=== PATIENT | male | born 1940 | race Caucasian/White ===

== ENCOUNTER 2024-06-20 17:49 | Observation (INO) | payer MEDICARE ==
[~2024-06-20] VITALS: Ht 177.8 cm; Wt 118.8 kg
[2024-06-20] MEDS ORDERED: cefTRIAXone SODIUM 2 GM in SODIUM CHLORIDE 0.9% 100 ML IV ONE ×2 (18:00→21:25)
[2024-06-20] MEDS ORDERED: SODIUM CHLORIDE 0.9% 1,000 ML IV ONE ×3 (18:00→23:05)
[2024-06-20] MEDS ORDERED: DILTIAZEM HCL 25 MG/5 ML SDV IV ONE (18:35)
[2024-06-20] MEDS ORDERED: SODIUM CHLORIDE 0.9% 500 ML IV ONE (18:35)
[2024-06-20] MEDS ORDERED: DILTIAZEM HCL 125 MG in SODIUM CHLORIDE 0.9% 100 ML IV ONE (18:35)
[2024-06-20 18:39] LABS: URINE BILIRUBIN - DIPSTICK Negative (NEGATIVE); URINE BLOOD DIPSTICK Negative (NEGATIVE); URINE COLOR Yellow; URINE GLUCOSE - DIPSTICK Negative (NEGATIVE); URINE KETONE Negative (NEGATIVE); URINE LEUK ESTERASE Negative (NEGATIVE); URINE NITRITE - DIPSTICK Negative (Negative); URINE PROTEIN - DIPSTICK Negative (NEG-TRACE); URINE SPECIFIC GRAVITY 1.015; URINE UROBILINOGEN - DIPSTICK 0.2 E.U./dL (0.2)
[2024-06-20] MEDS ORDERED: METOPROLOL TARTRATE 5 MG/5 ML VIAL IV ONE (19:15)
[2024-06-20 19:36] LABS: BASO% 0.2 % (0-3); HEMATOCRIT 41.8 % (39.0-50.0); HEMOGLOBIN 13.6 g/dl (14.0-18.0); IMMATURE GRANULOCYTES 0.4 % (0.0-5.0); LYMPH% 0.9 % (15-41); MEAN CELL VOLUME 95.2 fL CALC (80.0-100.0); MEAN CORPUSCULAR HGB CONC 32.5 g/dL CAL (32.0-36.0); MONO% 2.2 % (2-13); NEUT# 15.57 thou/uL (1.82-7.42); NEUT% 96.3 % (42-76); RED BLOOD COUNT 4.39 mill/uL (4.70-6.10)
[2024-06-20 19:51] LABS: ALBUMIN 3.6 g/dL (3.2-5.0); BILIRUBIN, TOTAL 0.7 mg/dL (0.2-1.3); POTASSIUM 3.7 mmol/l (3.5-5.1); TOTAL PROTEIN 6.1 g/dL (6.3-8.2)
[2024-06-20] MEDS ORDERED: ACETAMINOPHEN 500 MG TAB PO ONE (20:20)
[2024-06-20] MEDS ORDERED: KETOROLAC TROMETHAMINE 30 MG/ML SDV IV ONE (20:20)
[2024-06-20] MEDS ORDERED: AZITHROMYCIN 500 MG in SODIUM CHLORIDE 0.9% 250 ML IV ONE (21:25)
[2024-06-20] MEDS ORDERED: ACETAMINOPHEN 325 MG/TAB PO PRN (21:45)
[2024-06-20] MEDS ORDERED: SODIUM CHLORIDE 0.9% 1,000 ML IV PRN (21:45)
[2024-06-20] MEDS ORDERED: VANCOMYCIN HCL 1 GM in SODIUM CHLORIDE 0.9% 250 ML IV ONE (21:45)
[2024-06-20] MEDS ORDERED: MAGNESIUM HYDROXIDE 30 ML UDC PO PRN (21:45)
[2024-06-21] VITALS (10 sets, daily range): BP systolic 90–115; BP diastolic 44–56
[2024-06-21 05:10] LABS: BASO% 0.2 % (0-3); HEMATOCRIT 36.6 % (39.0-50.0); HEMOGLOBIN 11.8 g/dl (14.0-18.0); IMMATURE GRANULOCYTES 0.9 % (0.0-5.0); LYMPH% 4.1 % (15-41); MEAN CELL VOLUME 97.1 fL CALC (80.0-100.0); MEAN CORPUSCULAR HGB 31.3 pG CALC (26.0-32.0); MEAN CORPUSCULAR HGB CONC 32.2 g/dL CAL (32.0-36.0); MONO% 6.1 % (2-13); NEUT# 18.58 thou/uL (1.82-7.42); NEUT% 88.7 % (42-76); RED BLOOD COUNT 3.77 mill/uL (4.70-6.10); RED CELL DISTRI WIDTH 13.4 % (11.5-15.5)
[2024-06-21 05:46] LABS: BILIRUBIN, TOTAL 0.9 mg/dL (0.2-1.3); CHOLESTEROL HDL RATIO 2.3 (<4.4 (CALC)); CREATININE 1.1 mg/dL (0.7-1.3); MAGNESIUM 1.7 mg/dL (1.6-2.3); POTASSIUM 3.9 mmol/l (3.5-5.1)
[2024-06-21 05:47] LABS: ALBUMIN 2.8 g/dL (3.2-5.0)
[2024-06-21] MEDS ORDERED: TAMSULOSIN HCL 0.4 MG CAP PO SCH (08:00)
[2024-06-21] MEDS ORDERED: VANCOMYCIN HCL 1 GM in SODIUM CHLORIDE 0.9% 250 ML IV SCH ×2 (09:00→11:00)
[2024-06-21] MEDS ORDERED: METOPROLOL TARTRATE 25 MG/TAB PO SCH (09:00)
[2024-06-21] MEDS ORDERED: ASPIRIN 325 MG/TAB PO SCH (09:00)
[2024-06-21] MEDS ORDERED: cefTRIAXone SODIUM 2 GM in SODIUM CHLORIDE 0.9% 100 ML IV SCH (18:00)
[2024-06-21] MEDS ORDERED: ENOXAPARIN SODIUM 40 MG/0.4 ML SYR SC SCH (21:00)
[2024-06-21] MEDS ORDERED: ATORVASTATIN CALCIUM 10 MG/TAB PO SCH (21:00)
[2024-06-22 05:27] LABS: BASO% 0.3 % (0-3); EOS% 0.7 % (0-8); HEMATOCRIT 35.8 % (39.0-50.0); IMMATURE GRANULOCYTES 0.1 % (0.0-5.0); LYMPH% 7.1 % (15-41); MEAN CORPUSCULAR HGB 32.5 pG CALC (26.0-32.0); MEAN CORPUSCULAR HGB CONC 33.5 g/dL CAL (32.0-36.0); MONO% 9.3 % (2-13); NEUT# 7.9 thou/uL (1.82-7.42); NEUT% 82.5 % (42-76); RED BLOOD COUNT 3.69 mill/uL (4.70-6.10); RED CELL DISTRI WIDTH 13.6 % (11.5-15.5)
[2024-06-22 05:29] LABS: ALBUMIN 2.8 g/dL (3.2-5.0); C-REACTIVE PROTEIN 7.4 mg/dL (0-0.9); MAGNESIUM 1.9 mg/dL (1.6-2.3); POTASSIUM 3.8 mmol/l (3.5-5.1); TOTAL PROTEIN 5.1 g/dL (6.3-8.2)
[2024-06-22 05:30] LABS: BILIRUBIN, TOTAL 0.4 mg/dL (0.2-1.3)
[2024-06-22 07:09] VITALS: BP 123/59
[2024-06-22] MEDS ORDERED: SODIUM CHLORIDE 0.9% 250 ML IV ONE (10:47)
[2024-06-22 10:52] VITALS: BP 126/64
[2024-06-22] MEDS ORDERED: FUROSEMIDE 40 MG/4 ML SDV IV SCH (11:30)
[2024-06-22 16:16] VITALS: BP 122/81
[2024-06-22 19:02] VITALS: BP 135/80
[2024-06-22 23:55] VITALS: BP 126/76
[2024-06-23 04:06] VITALS: BP 116/69
[2024-06-23 05:31] LABS: BASO% 0.5 % (0-3); EOS% 3.3 % (0-8); HEMATOCRIT 37.7 % (39.0-50.0); HEMOGLOBIN 12.6 g/dl (14.0-18.0); IMMATURE GRANULOCYTES 0.2 % (0.0-5.0); LYMPH% 9.9 % (15-41); MEAN CELL VOLUME 96.4 fL CALC (80.0-100.0); MEAN CORPUSCULAR HGB 32.2 pG CALC (26.0-32.0); MEAN CORPUSCULAR HGB CONC 33.4 g/dL CAL (32.0-36.0); NEUT# 4.61 thou/uL (1.82-7.42); NEUT% 70.1 % (42-76); RED BLOOD COUNT 3.91 mill/uL (4.70-6.10); RED CELL DISTRI WIDTH 13.3 % (11.5-15.5)
[2024-06-23 05:47] LABS: ALBUMIN 2.8 g/dL (3.2-5.0); BILIRUBIN, TOTAL 0.4 mg/dL (0.2-1.3); C-REACTIVE PROTEIN 5.9 mg/dL (0-0.9); CREATININE 0.8 mg/dL (0.7-1.3); MAGNESIUM 1.8 mg/dL (1.6-2.3); POTASSIUM 3.7 mmol/l (3.5-5.1); TOTAL PROTEIN 5.1 g/dL (6.3-8.2)
[2024-06-23] MEDS ORDERED: TAMSULOSIN0.4 MG PO (06:18)
[2024-06-23] MEDS ORDERED: AMOX/K CLAV875 M1 PO (06:19)
[2024-06-23 07:26] VITALS: BP 125/75
[2024-06-23] MEDS ORDERED: AMOXICILLIN & POT CLAVULANATE 875 MG/TAB PO SCH (10:30)
[2024-06-23 11:01] VITALS: BP 137/77
[2024-06-23 16:40] VITALS: BP 148/75
[2024-06-23] MEDS ORDERED: RIVAROXABAN 20 MG TAB PO SCH (17:30)
[2024-06-23 18:51] VITALS: BP 146/88
[2024-06-23 23:54] VITALS: BP 137/77
[2024-06-24 04:08] VITALS: BP 145/82
[2024-06-24 06:01] LABS: BASO% 0.7 % (0-3); EOS% 3.7 % (0-8); HEMATOCRIT 37.3 % (39.0-50.0); HEMOGLOBIN 12.5 g/dl (14.0-18.0); LYMPH% 17.5 % (15-41); MEAN CELL VOLUME 95.6 fL CALC (80.0-100.0); MEAN CORPUSCULAR HGB 32.1 pG CALC (26.0-32.0); MEAN CORPUSCULAR HGB CONC 33.5 g/dL CAL (32.0-36.0); MONO% 18.9 % (2-13); NEUT# 3.55 thou/uL (1.82-7.42); NEUT% 59.2 % (42-76); RED BLOOD COUNT 3.9 mill/uL (4.70-6.10); RED CELL DISTRI WIDTH 13.1 % (11.5-15.5)
[2024-06-24 06:11] LABS: BILIRUBIN, TOTAL 0.5 mg/dL (0.2-1.3); CREATININE 0.8 mg/dL (0.7-1.3); POTASSIUM 3.8 mmol/l (3.5-5.1); TOTAL PROTEIN 5.5 g/dL (6.3-8.2)
[2024-06-24 06:48] VITALS: BP 142/83
[2024-06-24] MEDS ORDERED: FINASTERIDE 5 MG/TAB PO SCH (09:00)
[2024-06-24 10:54] VITALS: BP 130/76
[2024-06-24 16:04] VITALS: BP 124/58
[2024-06-24 19:06] VITALS: BP 137/73
[2024-06-24] MEDS ORDERED: METOPROLOL TARTRATE 25 MG/TAB PO SCH (21:00)
[2024-06-24 23:40] VITALS: BP 145/85
[2024-06-25 04:34] VITALS: BP 142/80
[2024-06-25 05:28] LABS: BASO% 0.7 % (0-3); EOS% 4.1 % (0-8); HEMATOCRIT 36.1 % (39.0-50.0); HEMOGLOBIN 11.8 g/dl (14.0-18.0); IMMATURE GRANULOCYTES 0.7 % (0.0-5.0); LYMPH% 21.5 % (15-41); MEAN CORPUSCULAR HGB 31.1 pG CALC (26.0-32.0); MEAN CORPUSCULAR HGB CONC 32.7 g/dL CAL (32.0-36.0); MONO% 18.1 % (2-13); NEUT# 3.37 thou/uL (1.82-7.42); NEUT% 54.9 % (42-76); RED BLOOD COUNT 3.8 mill/uL (4.70-6.10)
[2024-06-25 05:51] LABS: ALBUMIN 2.9 g/dL (3.2-5.0); BILIRUBIN, TOTAL 0.6 mg/dL (0.2-1.3); CREATININE 0.8 mg/dL (0.7-1.3); MAGNESIUM 1.9 mg/dL (1.6-2.3); POTASSIUM 3.9 mmol/l (3.5-5.1); TOTAL PROTEIN 5.1 g/dL (6.3-8.2)
[2024-06-25 06:29] VITALS: BP 154/73
[2024-06-25 07:40] VITALS: BP 154/73
[2024-06-25 10:29] VITALS: BP 137/64
[2024-06-25 10:52] VITALS: BP 137/64
[2024-06-25 14:35] VITALS: BP 143/80
[2024-06-25] MEDS ORDERED: XARELTO20 MG PO (17:11)
[2024-06-25] MEDS ORDERED: COZAAR25 MG PO (17:11)
[2024-06-25] MEDS ORDERED: CARVEDILOL3.125 MG PO (17:11)
== END 2024-06-25 14:39 ==
LOC: ED 17:49 → ED-I 21:15 → ED 21:31 → MS2 21:32
PROVIDERS: Family Medicine; ADMIT Student in an Organized Health Care Education/Training Program; ATTEND Student in an Organized Health Care Education/Training Program
PROC: 0T9B70Z Drainage of Bladder with Drainage Device, Via Natural or Artificial Opening (ICD-10-PCS; principal; 2024-06-20)
DX: R50.9 Fever, unspecified (principal); D72.829 Elevated white blood cell count, unspecified; R53.1 Weakness; R79.89 Other specified abnormal findings of blood chemistry; I10 Essential (primary) hypertension; I25.10 Atherosclerotic heart disease of native coronary artery without angina pectoris; I48.0 Paroxysmal atrial fibrillation; N40.1 Benign prostatic hyperplasia with lower urinary tract symptoms; R33.8 Other retention of urine; E66.9 Obesity, unspecified; T45.516A Underdosing of anticoagulants, initial encounter; Z91.120 Patient's intentional underdosing of medication regimen due to financial hardship; Z87.891 Personal history of nicotine dependence; Z95.1 Presence of aortocoronary bypass graft; Z91.81 History of falling; Z20.822 Contact with and (suspected) exposure to COVID-19
CPT/HCPCS: J1650; Q9967